=== PATIENT | male | born 1975 | race African-American/Black ===

== ENCOUNTER 2022-03-06 22:38 | Emergency (ER) | payer OTHER ==
[~2022-03-06] VITALS: Ht 165.1 cm; Wt 79.4 kg
[2022-03-06] MEDS ORDERED: LORAZEPAM 2 MG/1 ML VIAL IV ONE (23:00)
[2022-03-06] MEDS ORDERED: ASPIRIN 81 MG TAB.CHEW PO ONE (23:00)
[2022-03-06] MEDS ORDERED: LORAZEPAM 2 MG/1 ML VIAL ONE (23:27)
[2022-03-06] MEDS ORDERED: ASPIRIN 81 MG TAB.CHEW ONE (23:28)
[2022-03-06 23:34] LABS: HEMATOCRIT 38.4 % (36.7-47.1); MEAN CORPUSCULAR HEMOGLOBIN 33.5 uug (23.8-33.4); MEAN CORPUSCULAR VOLUME 99.2 fL (73.0-96.2); PLATELET COUNT (AUTO) 151 K/uL (152-348)
[2022-03-06 23:36] LABS: CARBON DIOXIDE 28 mmol/L (21-32); CHLORIDE 99 mmol/L (98-107); CREATININE 1.2 mg/dL (0.6-1.3); GLUCOSE 122 mg/dL (74-106); POTASSIUM 3.6 mmol/L (3.5-5.1); UREA NITROGEN, BLOOD 13 mg/dL (7-18)
[2022-03-06 23:49] LABS: ALANINE AMINOTRANSFERASE 81 U/L (16-63); ALKALINE PHOSPHATASE 51 U/L (50-136); ASPARTATE AMINOTRANSFERASE 94 U/L (15-37); BILIRUBIN,DIRECT 0.1 mg/dL (0.0-0.2); BILIRUBIN,TOTAL 0.3 mg/dL (0.2-1.0); TOTAL PROTEIN, SERUM 6.9 g/dL (6.4-8.2)
--- NOTE | 2022-03-07 01:20 | NUR ---
Pt resting in bed with eyes closed. Resp even and unlabored. On monitor.
[2022-03-07] MEDS ORDERED: LORA-259 PO (01:53)
[2022-03-07] MEDS ORDERED: CLON0.1T PO (01:53)
[2022-03-07 02:07] LABS: LYMPHOCYTES % (MANUAL) 43 % (20-40); MONOCYTES % (MANUAL) 11 % (2-10); NEUTROPHILS % (MANUAL) 46 % (42-75)
[2022-03-07] MEDS ORDERED: CLONIDINE HCL 0.1 MG TABLET PO ONE (02:15)
[2022-03-07] MEDS ORDERED: CLONIDINE HCL 0.1 MG TABLET ONE (02:17)
--- NOTE | 2022-03-07 02:24 | NUR ---
Pt aware to pick and shovel man electronically sent prescriptions lorazepam & clonidine from specified pharmacy on discharge paperwork. Strongly admonished to f/u with one of the 3 pcp recommended in discharge instructions..
--- NOTE | 2022-03-07 02:25 | NUR ---
Patient discharged to home in stable condition. Written and verbal after care instructions given. Patient verbalizes understanding of instructions. Stressed follow up or return to ER for worsening s/s. Left AC 20g piv d/c'd with catheter tip intact. Gauze and tape placed. Pt tolerated well. Taxi arranged for transport home by charge nurse.
[2022-03-07 04:53] VITALS: BP 140/90
== END 2022-03-07 02:30 | disposition home or self-care (01) ==
LOC: ER 22:38
DX: F41.1 Generalized anxiety disorder (principal); R07.9 Chest pain, unspecified; I10 Essential (primary) hypertension
CPT/HCPCS: 99285; 96374; 71045; 80076; 80048; 83880; 85025; 84484 ×2; 93005; 36415; 85007; J2060; 70030-TC; A4663